=== PATIENT | female | born 1980 | race Caucasian/White ===

== ENCOUNTER 2024-01-30 16:16 | Inpatient (IN) ==
[2024-01-30] MEDS ORDERED: Al Hydrox/Mg Hydrox/Simet LIQ 30 ML UDC PO PRN (19:56)
[2024-01-30 20:49] LABS: ABS Basophils 0.1 10^3/uL (0.0-0.1); ABS Eosinophils 0.3 10^3/uL (0.0-0.5); ABS Lymphocytes 3.2 10^3/uL (1.0-4.8); ABS Monocytes 0.8 10^3/uL (0.0-0.9); ABS Neutrophils 8.5 10^3/uL (1.5-7.6); Eosinophil % 2.6 %; Hematocrit 44.5 % (35-45); Hemoglobin 14.8 g/dL (11.5-14.3); Lymphocyte % 24.5 %; Mean Corpuscular Hemoglobin 27.8 pg (27-33); Mean Corpuscular Hgb Conc 33.3 g/dL (31-36); Mean Corpuscular Volume 83.5 fL (80-97); Mean Platelet Volume 8.5 fL (7.5-11.2); Platelet Count 294 10^3/uL (150-450); Red Blood Count 5.33 10^6/uL (3.63-4.92)
[2024-01-30 21:05] LABS: ALT 17 U/L (7-52); AST 11 U/L (13-39); Albumin 3.8 g/dL (3.2-5.2); Albumin/Globulin Ratio 1.3 (1-3); Alkaline Phosphatase 98 U/L (35-149); Anion Gap 11 mmol/L (2-16); Blood Urea Nitrogen 17 mg/dL (6-24); CO2 Carbon Dioxide 24 mmol/L (22-32); Calcium 9.6 mg/dL (8.6-10.3); Chloride 98 mmol/L (101-111); Creatinine, Serum 1.17 mg/dL (0.51-0.95); Globulin 2.9 g/dL (2-4); Glucose 336 mg/dL (70-100); Potassium 4.3 mmol/L (3.5-5.0); Sodium 133 mmol/L (135-145); Total Bilirubin 0.4 mg/dL (0.2-1.0); Total Protein 6.7 g/dL (6.4-8.9); Urine Benzodiazepine Screen None Detected (None Detect); Urine Cannabinoids Screen Presumptive Positive (None Detect); Urine Opiates Screen None Detected (None Detect); eGFR CKD-EPI 58.3 (>60)
[2024-01-30 21:12] LABS: HCG Pregnancy < 0.60 mIU/mL
[2024-01-30 21:14] LABS: Urine Appearance Clear; Urine Bacteria Absent /HPF (Absent); Urine Bilirubin Negative (Negative); Urine Blood Trace (Negative); Urine Color Yellow; Urine Glucose 4+ (>=1000 mg/dL) (Negative); Urine Ketones Trace (Negative); Urine Nitrite Negative (Negative); Urine Protein 1+ (>=30 mg/dL) (Negative); Urine Red Blood Cell Trace(0-2/hpf) /HPF (0-Trace); Urine Squamous Epithelial Cell Present /HPF (Absent); Urine Urobilinogen 1+ (Negative); Urine White Blood Cell Trace(0-5/hpf) /HPF (0-Trace); Urine pH 5.5 (5.0-8.0)
[2024-01-31] MEDS ORDERED: Nicotine GUM 4MG FRUIT FLAVOR PO PRN (05:52)
[2024-01-31] MEDS: Vitamin THERAPEUTIC TAB PO SCH (08:06)
[2024-01-31] MEDS: Cariprazine 3 mg CAP (NF) PO SCH (10:11)
[2024-01-31] MEDS: Nicotine GUM 4MG FRUIT FLAVOR PO PRN (10:30)
[2024-01-31] MEDS: Nicotine Lozenge mini 4 MG LOZNG.MINI MT PRN (11:25)
[2024-01-31] MEDS ORDERED: Dextrose 50% Syringe 50 ml 25 GM/50 ML SYRINGE IV PUSH PRN (11:40)
[2024-01-31] MEDS: Insulin GLARGINE 100 un/ml 10 ml VIAL SUBCUT SCH (12:49)
[2024-01-31] MEDS: Metformin ER 500 mg TAB (NF) PO SCH (20:25)
[2024-02-01 08:35] LABS: HDL Cholesterol 41.1 mg/dL
[2024-02-01] MEDS: Insulin GLARGINE 100 un/ml 10 ml VIAL SUBCUT SCH (09:16)
[2024-02-01] MEDS: Insulin GLARGINE 100 un/ml 10 ml VIAL SUBCUT ONE (17:10)
[2024-02-02] MEDS: Insulin GLARGINE 100 un/ml 10 ml VIAL SUBCUT SCH ×2 (08:42→09:12)
[2024-02-02 09:10] VITALS: BP 171/93
[2024-02-02] MEDS: Insulin GLARGINE 100 un/ml 10 ml VIAL SUBCUT ONE (10:33)
== END 2024-02-02 11:05 | disposition home or self-care (01) | DRG 751 ==
LOC: ED 16:16 → EDHOLD 19:56 → BSU 21:54
PROVIDERS: ADMIT Psychiatry & Neurology Psychiatry; ATTEND Psychiatry & Neurology Psychiatry